=== PATIENT | male | born 1990 | race Caucasian/White ===

== ENCOUNTER 2018-01-28 15:24 | Emergency (ER) | END 2018-01-29 13:02 ==

== ENCOUNTER 2018-04-24 16:58 | Emergency (ER) | payer MEDICAID, OTHER ==
[~2018-04-24] VITALS: Wt 96.0 kg
[~2018-04-24 16:58] MED LIST: ELVI1TAB2 PO
[2018-04-24 17:07] VITALS: BP 131/95; PULSE 82; RESP 18
[2018-04-24] MEDS ORDERED: ACYC400T2 PO (17:50)
[2018-04-24] MEDS ORDERED: DOCU-144 PO (17:50)
[2018-04-24] MEDS ORDERED: HYDR-4011 PO (17:50)
--- NOTE | 2018-04-24 17:55 | ERD ---
ER Documentation Chief Complaint Chief Complaint rash to anus x4days; unable to have BM due to pain HPI 27-year-old male presents with pain and possible rash to his rectum for last 4 days. He did recently have some possible exposure to STD. He has a history of HIV treated and has a normal T-cell count and undetectable viral load by report. ROS All systems reviewed and are negative except as per history of present illness. Medications Home Meds Active Scripts Docusate Sodium* (Colace*) 100 Mg Capsule, 100 MG PO BID, #30 CAP Prov:SKYE HANSON MD 04/24/18 Hydrocodone/Acetaminophen ([place] 5-325 Tablet) 1 Each Tablet, 1 TAB PO Q6H PRN for PAIN, #10 TAB Prov:SKYE HANSON MD 04/24/18 Acyclovir* (Acyclovir*) 400 Mg Tablet, 400 MG PO TID for 7 Days, TAB Prov:SKYE HANSON MD 04/24/18 Reported Medications Elvitegr/Cobicist/Emtric/Tenof (STRIBILD TABLET) 1 Each Tablet, 1 EACH PO DAILY, TAB 01/28/18 Allergies Allergies: Coded Allergies: No Known Allergy (Unverified , 01/28/18) PMhx/Soc Medical and Surgical Hx: pt denies Medical Hx, pt denies Surgical Hx Hx Miscellaneous Medical Probl: Yes (HIV) Hx Alcohol Use: Yes (OCCASIONAL) 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 Neck: Full range of motion. No meningismus. Resp: Clear to auscultation bilaterally Cardio: Regular rate and rhythm, no murmurs Abd: Soft, non tender, non distended. Normal bowel sounds. Rectal exam shows erythematous vesicles around the rectum. No induration, fluctuance. Skin: No petechiae or rashes Back: No midline or flank tenderness Ext: No cyanosis, or edema Neur: Awake and alert Psych: Normal Mood and Affect Procedures/MDM Patient has signs and symptoms of genital herpes of the rectal area. There is no evidence of sepsis. He will be treated with acyclovir, short course of No rco, Colace, recommendations for observing and taking acyclovir for sign of future outbreaks. He should otherwise return to the ER for new or worsening symptoms. The patient was stable with no new complaints during the ER course. Clinically, there is no current evidence to suggest meningitis, sepsis, acute abdomen, pneumonia, stroke, acute coronary syndrome, pulmonary embolism, aortic dissection or any other emergent condition appearing to require further evaluation or hospitalization. Patient counseled regarding my diagnostic impression and care plan. Prior to discharge all questions answered. Pt agrees with treatment plan and understands strict return precautions. Pt is instructed to follow up with primary care provider within 24-48 hours. Precautionary instructions provided including instructions to return to the ER if not improving or for any worsening or changing symptoms or concerns. Cures review negative Departure Diagnosis: Primary Impression: Herpes Patient Instructions: Herpes Genitalis, Hsv: Type Ii Referrals: [facility] (PCP) Additional Instructions: Restart acyclovir at first sign of recurrent symptoms. Okay to take ibuprofen 600 mg 3 times a day as well for pain. Recheck otherwise for new or worsening symptoms. SKYE HANSON MD Apr 24, 2018 17:55
== END 2018-04-24 18:00 | disposition home or self-care (01) ==
LOC: FTE 16:58
DX: B00.9 Herpesviral infection, unspecified (principal)
CPT/HCPCS: 99283

== ENCOUNTER 2018-07-08 17:11 | Emergency (ER) | payer OTHER ==
[~2018-07-08] VITALS: Ht 182.9 cm; Wt 86.0 kg
[~2018-07-08 17:11] MED LIST changes: +ACYC400T2 PO; +DOCU-144 PO; +HYDR-4011 PO
[2018-07-08 17:13] VITALS: Ht 182.9 cm; Wt 86.0 kg
--- NOTE | 2018-07-08 22:40 | ERD ---
ER Documentation Chief Complaint Chief Complaint pt c/o chest pain, sob, rectal bleeding, aches and pains starting yesterday HPI This is a 27-year-old male with prior history of HIV, who presents for evaluation of chest pain, with intermittent shortness of breath, has been going on since yesterday. He states that initially he attributed his symptoms to having a cold, but has not improved and wanted to get an opinion. Regarding his HIV, he is on triple therapy, and states that he is checked regularly, and his CD4 has been stable. He has no cardiac history, I cannot hemoptysis denies leg swelling. Regarding his rectal bleeding, he had a single episode of bright red blood per rectum, he denies any pain, he denies history of hemorrhoids. ROS All systems reviewed and are negative except as per history of present illness. Medications Home Meds Active Scripts Docusate Sodium* (Colace*) 100 Mg Capsule, 100 MG PO BID, #30 CAP Prov:SKYE HANSON MD 04/24/18 Hydrocodone/Acetaminophen ([place] 5-325 Tablet) 1 Each Tablet, 1 TAB PO Q6H PRN for PAIN, #10 TAB Prov:SKYE HANSON MD 04/24/18 Acyclovir* (Acyclovir*) 400 Mg Tablet, 400 MG PO TID for 7 Days, TAB Prov:SKYE HANSON MD 04/24/18 Reported Medications Elvitegr/Cobicist/Emtric/Tenof (STRIBILD TABLET) 1 Each Tablet, 1 EACH PO DAILY, TAB 01/28/18 Allergies Allergies: Coded Allergies: No Known Allergy (Unverified , 01/28/18) PMhx/Soc Medical and Surgical Hx: pt denies Surgical Hx Hx Miscellaneous Medical Probl: Yes (HIV) Hx Alcohol Use: Yes (OCCASIONAL) 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 Neck: Full range of motion. No meningismus. Resp: Clear to auscultation bilaterally, no wheezes rales or rhonchi Cardio: Regular rate and rhythm, no murmurs Abd: Soft, non tender, non distended. Normal bowel sounds exam: Patient deferred rectal exam Skin: No petechiae or rashes Back: No midline or flank tenderness Ext: No cyanosis, or edema Neur: Awake and alert Psych: Normal Mood and Affect Result Diagram: 07/08/18210807/08/182108 Results 24 hrs Laboratory Tests Test 07/08/18 21:09 White Blood Count 7.4 10^3/ul Red Blood Count 4.73 10^6/ul Hemoglobin 15.2 g/dl Hematocrit 44.3 % Mean Corpuscular Volume 93.7 fl Mean Corpuscular Hemoglobin 32.1 pg Mean Corpuscular Hemoglobin Concent 34.3 g/dl Red Cell Distribution Width 12.5 % Platelet Count 238 10^3/UL Mean Platelet Volume 9.7 fl Immature Granulocytes % 0.300 % Neutrophils % 68.9 % Lymphocytes % 18.0 % Monocytes % 10.2 % Eosinophils % 2.2 % Basophils % 0.4 % Nucleated Red Blood Cells % 0.0 /100WBC Immature Granulocytes # 0.020 10^3/ul Neutrophils # 5.1 10^3/ul Lymphocytes # 1.3 10^3/ul Monocytes # 0.8 10^3/ul Eosinophils # 0.2 10^3/ul Basophils # 0.0 10^3/ul Nucleated Red Blood Cells # 0.0 10^3/ul D-Dimer 262.98 ng/ml D-Dimer Comment Sodium Level 140 mmol/L Potassium Level 4.3 mmol/L Chloride Level 103 mmol/L Carbon Dioxide Level 25 mmol/L Anion Gap 12 Blood Urea Nitrogen 12 mg/dl Creatinine 0.70 mg/dl Est Glomerular Filtrat Rate mL/min > 60 mL/min Glucose Level 89 mg/dl Calcium Level 9.0 mg/dl Troponin I < 0.012 ng/ml Procedures/MDM This is a 27-year-old male who presents for evaluation of chest pain, shortness of breath, and rectal bleeding. #Chest pain/shortness of breath. Patient endorsed a history of stress, and quite if this could be anxiety related, and this is a consideration. He has no coronary artery disease risk factors, his EKG did not show any signs of acute ischemia. HIV is an independent risk factor for pulmonary embolism, however he has no tachycardia, no hypoxia, and his d-dimer was negative, do suspect this is less likely. Additionally his troponin was negative. #Rectal bleeding. Patient has single episode of bright red blood per rectum, he had no abdominal pain, and no history of inflammatory bowel disease, he felt comfortable with watchful waiting on this, his CBC was within normal limits, and he had no signs of symptomatic anemia, he will follow-up with his PMD for this, I discussed findings with patient, and at discharge she was in no acute distress. Departure Diagnosis: Primary Impression: Chest pain Chest pain type: unspecified Qualified Codes: R07.9 - Chest pain, unspecified Additional Impressions: Rectal bleeding Shortness of breath HIV (human immunodeficiency virus infection) HIV symptom status: unspecified Qualified Codes: B20 - Human i mmunodeficiency virus [HIV] disease Condition: Stable GERMAINE CARROLL MD Jul 08, 2018 22:40
[2018-07-08 22:52] VITALS: BP 138/83; PULSE 85; RESP 18
== END 2018-07-08 22:53 | disposition home or self-care (01) ==
LOC: FTE 17:11
DX: K62.5 Hemorrhage of anus and rectum (principal); B20 Human immunodeficiency virus [HIV] disease; R06.02 Shortness of breath; F17.210 Nicotine dependence, cigarettes, uncomplicated
CPT/HCPCS: 36415; 71045; 80048; 84484; 85025; 85378; 93005